=== PATIENT | male | born 1960 | race Caucasian/White ===

== ENCOUNTER → 2018-01-21 | Outpatient (CLI) | payer MEDICARE, MEDICAID ==
[2014-04-17 09:25] VITALS: BP 135/82
[~2018-01-21] MED LIST: ASPI-482 PO; LISI10TA2 PO; SIMV40TA3 PO
--- NOTE | 2018-01-21 16:35 | RAD ---
CT of the chest without contrast, 01/21/2018: HISTORY: Former smoker, clubbing Noncontrast scans were obtained as requested. The lungs are markedly abnormal. There are extensive reticular and tree-in-bud opacities in both lungs most prominent in the periphery of the lower lobes. There is mild associated bronchiectasis posteriorly in both lower lobes. There are abnormal air-containing structures in both lungs with dominant involvement of the upper lobes. Some of some of these demonstrate thin howard. The appearance suggests a combination of emphysema and honeycombing. Several small scattered groundglass type opacities are seen. No dense consolidation or definite mass is seen. There is no evidence of pleural fluid. There is moderate calcific plaquing of the thoracic aorta. Moderate coronary artery calcifications are present. The heart is not enlarged. There is mild mediastinal adenopathy including AP window and right paratracheal nodes measuring approximately 1.3 cm in short axis dimension. Mild scattered degenerative changes are present in the spine. IMPRESSION: 1. Extensive chronic lung disease demonstrating a combination of emphysema, interstitial lung disease with honeycombing and bronchiectasis. 2. Mild mediastinal adenopathy. 3. Moderate coronary artery calcifications. PQRS Compliance Statement: One or more of the following individualized dose reduction techniques were utilized for this examination: 1. Automated exposure control 2. Adjustment of the mA and/or kV according to patient size 3. Use of iterative reconstruction technique Electronically signed by: Reji Coffman MD (01/21/2018 4:31 PM) [facility]
== END | disposition home or self-care (01) ==
LOC: CT 08:09
PROVIDERS: ATTEND Internal Medicine Pulmonary Disease
DX: J43.9 Emphysema, unspecified (principal); J84.9 Interstitial pulmonary disease, unspecified; J47.9 Bronchiectasis, uncomplicated; R59.0 Localized enlarged lymph nodes; I25.10 Atherosclerotic heart disease of native coronary artery without angina pectoris; R68.3 Clubbing of fingers; Z87.891 Personal history of nicotine dependence
CPT/HCPCS: 71250

== ENCOUNTER → 2018-01-23 | Outpatient (CLI) | payer MEDICARE, MEDICAID ==
[2014-04-17 09:25] VITALS: BP 135/82
[2018-01-23] MEDS: REGADENOSON 0.4 MG/5 ML DISP.SYRIN. IV ONE (09:30)
--- NOTE | 2018-01-23 11:33 | CARD ---
MR#: [id number] Date of Study: 01/23/2018 Ordering Physician: CHRISTOPHE ALBERTO, Referring Physician: CHRISTOPHE ALBERTO, Tech: Laura Garcia [facility] APPROVED REPORT EXAM: Two-dimensional and M-mode echocardiogram with Doppler and color Doppler. Other Information Quality : Good INDICATION Dyspnea History of CVA 2D DIMENSIONS RVDd2.9 (2.9-3.5cm)Left Atrium(2D)2.8 (1.6-4.0cm) IVSd0.9 (0.7-1.1cm)Aortic Root(2D)2.6 (2.0-3.7cm) LVDd3.0 (3.9-5.9cm)LVOT Diameter2.0 (1.8-2.4cm) PWd0.9 (0.7-1.1cm)LVDs2.3 (2.5-4.0cm) FS (%) 22.0 %SV16.1 ml Aortic Valve AoV Peak Brian.143.6cm/sAoV VTI22.8cm AO Peak GR.8.2mmHgLVOT Peak Brian.95.1cm/s LVOT VTI 17.18cmAO Mean GR.4mmHg PRATIMA (VMAX)2.19ye7QKU (VTI)2.47cm2 Mitral Valve MV E Iagtopgt17.0cm/sMV DECEL QPKO588qu MV A Bftzatrq721.4cm/sMV OKG66pt E/A Ratio0.5MVA (PHT)3.74cm2 TDI E/Lateral E'3.3E/Medial E'8.1 Pulmonary Vein S1 Edoxeaec90.9cm/sD2 Qctleeat07.7cm/s LEFT VENTRICLE The left ventricle is normal size. There is normal left ventricular wall thickness. The left ventricu lar systolic function is normal and the ejection fraction is within normal range. The Ejection Fracti on is 55-60%. There is normal LV segmental wall motion. Transmitral Doppler flow pattern is Grade I-a bnormal relaxation pattern. RIGHT VENTRICLE The right ventricle is normal size. The right ventricular systolic function is normal. ATRIA The left atrium size is normal. The right atrium size is normal. The interatrial septum is intact wit h no evidence for an atrial septal defect or patent foramen ovale as noted on 2-D or Doppler imaging. AORTIC VALVE The aortic valve is calcified but opens well. Doppler and Color Flow revealed no significant aortic r egurgitation. There is no significant aortic valvular stenosis. MITRAL VALVE The mitral valve is calcified but opens well. There is no evidence of mitral valve prolapse. There is no mitral valve stenosis. Doppler and Color Flow revealed no mitral valve regurgitation noted. TRICUSPID VALVE The tricuspid valve is normal in structure and function. Doppler and Color Flow revealed trace tricus pid regurgitation. There is no tricuspid valve stenosis. PULMONIC VALVE The pulmonic valve is not well visualized. Doppler and Color Flow revealed no pulmonic valvular regur gitation. There is no pulmonic valvular stenosis. GREAT VESSELS The aortic root is normal in size. The ascending aorta is normal in size. The IVC is normal in size a nd collapses >50% with inspiration. PERICARDIAL EFFUSION There is no evidence of significant pericardial effusion. Critical Notification Critical Value: No <Conclusion> The left ventricle is normal size. The left ventricular systolic function is normal and the ejection fraction is within normal range. The Ejection Fraction is 55-60%. There is no significant aortic valvular stenosis. Doppler and Color Flow revealed no significant aortic regurgitation. Doppler and Color Flow revealed no mitral valve regurgitation noted. Doppler and Color Flow revealed trace tricuspid regurgitation. Signed by : Lalo Turner MD Electronically Approved : 01/23/2018 11:32:46
--- NOTE | 2018-01-23 14:47 | RAD ---
MR#: [id number] Date of Study: 01/23/2018 Ordering Physician: CHRISTOPHE ALBERTO, Referring Physician: BRETT HURTADO Tech: RT Urbano (R) (N) APPROVED REPORT Test Type: Pharmacological Stress Nurse/Tech: Casandar Polanco R.N. Test Indications: Dyspnea Cardiac History: Family history, Hypertension, former smoker Medications: See Electronic Medical Record Medical History: See Electronic Medical Record Resting ECG: NSR Resting Heart Rate: 80 bpm Resting Blood Pressure: 152/90mmHg Pretest Chest Pain: No chest pain Nurse/Tech Notes S1S2, coarse breath sounds. o2 at 2 L. NC Consent: The procedure was explained to the patient in lay terms. Informed consent was witnessed. Dipesh eout was entered into OFERTALDIA. History and Stress Test performed by Lane StoutN. Pharm. Details Pharmacologic stress testing was performed using 0.4mg per 5ml of regadenoson given intravenously ove r 7-10 seconds. Stress Symptoms Dyspnea POST EXERCISE Reason for Termination: Infusion complete Target HR: 138 Max HR: 113 bpm Max Blood Pressure: 133/72mmHg Blood Pressure response to exercise: Normal blood pressure response during stress. Chest Pain: No. Arrhythmia: No. ST Change: No. INTERPRETATION Stress EKG Conclusion: Baseline EKG showed sinus rhythm. No ischemic changes at peak stress. No arr hythmias. Imaging Protocol IMAGE PROTOCOL: Rest Tc-99m/stress Tc-99m 1 day Rest: Stress: Viability: Radiopharm.Tc99m RxxemhogqAb88x Sestamibi Dose11.5mCi 32.3mCi Duration 13min. 13min. Img Date 01/23/2018 01/23/2018 Inj-Img Elvx86evo. 60min. Rest Admin Site:IV - Left AntecubitalAdministrator:RT Urbano (R)(N) Stress Admin Site: IV - Left AntecubitalAdministrator: ROSY Banegas, ARRT (R)(N) STRESS DATA End Diast. Vol.61.0mlLVEDV index BSA36.0ml End Syst. Vol.16.0mlLVESV index BSA9.0ml Myocardial Osio166.0gEject. Vrnavmxb63.0% Stress Scores Regional WT1.00Summed WT21.00 Regional WM0.00Summed WM3.00 Study quality was good. Left Ventricular size was Normal at Rest and Stress. Lung uptake was . Left Ventricular ejection fraction is 74%. The rest and stress images show normal perfusion, normal contraction and thickening. LV Perf. Quant 17 Seg. SSS0.00 17 Seg. SRS0.00 17 Seg. SDS0.00 Stress Defect Extent (% LAD)0.00Rest Defect Extent (% LAD)0.00Rev. Defect Extent (% LAD)0.00 Stress Defect Extent (% LCX) 0.00Rest Defect Extent (% LCX)0.00Rev. Defect Extent (% LCX)0.00 Stress Defect Extent (% RCA)0.00Rest Defect Extent (% RCA)0.00Rev. Defect Extent (% RCA)0.00 Stress Defect Extent (% JAMIE)0.00Rest Defect Extent (% JAMIE)0.00Rev. Defect Extent (% JAMIE)0.00 Conclusion 1. Regadenoson cardioisotope stress test did not show any evidence of ischemia or infarct. 2. Normal left ventricular systolic function with ejection fraction calculated at 74%. 3. Low risk for cardiac events. Signed by : Tres Carlson, Electronically Approved : 01/23/2018 14:46:14
== END | disposition home or self-care (01) ==
LOC: NM 08:37
PROVIDERS: ATTEND Internal Medicine Cardiovascular Disease
DX: R06.00 Dyspnea, unspecified (principal); I10 Essential (primary) hypertension; Z82.49 Family history of ischemic heart disease and other diseases of the circulatory system; Z87.891 Personal history of nicotine dependence; Z86.73 Personal history of transient ischemic attack (TIA), and cerebral infarction without residual deficits
CPT/HCPCS: 78452; 93017; 93306; 96374; 96375; 96376; A9500; J2785

== ENCOUNTER → 2018-01-28 | Outpatient (CLI) | payer MEDICARE, MEDICAID ==
[2014-04-17 09:25] VITALS: BP 135/82
[2018-01-28 11:46] LABS: BASO # 0.1 x10^3/uL (0.0-0.2); BASO % 1 % (0-3); EOS # 0.1 x10^3/uL (0.0-0.7); EOS % 1 % (0-3); HEMATOCRIT 50.9 % (39.0-53.0); HEMOGLOBIN 17.1 g/dL (13.0-17.5); LYMPH # 1.6 x10^3/uL (1.0-4.8); LYMPH % 18 % (24-48); MEAN CORPUSCULAR HEMOGLOBIN 26 pg (25-35); MEAN CORPUSCULAR HGB CONC 34 g/dL (31-37); MEAN CORPUSCULAR VOLUME 79 fL (79-100); MONO # 0.6 x10^3/uL (0.0-1.1); MONO % 7 % (0-9); NEUT # 6.5 x10^3uL (1.8-7.7); NEUT % 73 % (31-73); PLATELET COUNT 268 x10^3/uL (140-400); RED BLOOD COUNT 6.49 x10^6/uL (4.30-5.70); RED CELL DISTRIBUTION WIDTH 16.5 % (11.5-14.5)
[2018-01-29 18:14] LABS: ANA INTERP Negative (.)
[2018-01-30 00:16] LABS: ANGIOTENSIN CONVERTING ENZYME < 15 U/L (14-82)
== END | disposition home or self-care (01) ==
LOC: LAB 10:57
PROVIDERS: ATTEND Internal Medicine Pulmonary Disease
DX: J84.9 Interstitial pulmonary disease, unspecified (principal)
CPT/HCPCS: 36415; 83880; 85025; 85651; 86038; 86431

== ENCOUNTER 2019-01-02 02:16 | Inpatient (IN) | payer MEDICARE, MEDICAID ==
[2019-01-02] VITALS (16 sets, daily range): BP systolic 106–204; BP diastolic 60–94
[~2019-01-02] VITALS: Ht 157.5 cm; Wt 63.2 kg
[~2019-01-02 02:16] MED LIST changes: +SIMV40TA18 PO; -SIMV40TA3 PO
[2019-01-02 02:40] LABS: BASO # 0.1 x10^3/uL (0.0-0.2); BASO % 1 % (0-3); EOS # 0.1 x10^3/uL (0.0-0.7); EOS % 1 % (0-3); HEMATOCRIT 45.2 % (39.0-53.0); HEMOGLOBIN 14.9 g/dL (13.0-17.5); LYMPH # 1.6 x10^3/uL (1.0-4.8); LYMPH % 14 % (24-48); MEAN CORPUSCULAR HEMOGLOBIN 26 pg (25-35); MEAN CORPUSCULAR HGB CONC 33 g/dL (31-37); MEAN CORPUSCULAR VOLUME 79 fL (79-100); MONO # 0.7 x10^3/uL (0.0-1.1); MONO % 6 % (0-9); NEUT # 8.7 x10^3/uL (1.8-7.7); NEUT % 78 % (31-73); PLATELET COUNT 240 x10^3/uL (140-400); RED BLOOD COUNT 5.73 x10^6/uL (4.30-5.70); RED CELL DISTRIBUTION WIDTH 17.9 % (11.5-14.5); WHITE BLOOD COUNT 11.3 x10^3/uL (4.0-11.0)
[2019-01-02] MEDS ORDERED: ASPIRIN CHEWABLE 81 MG TABLET. PO ONE ×2 (02:45→15:15)
[2019-01-02 02:49] LABS: CALCIUM 9.2 mg/dL (8.5-10.1); CREATININE 1.4 mg/dL (0.7-1.3); GFR 52.1; POTASSIUM 3.5 mmol/L (3.5-5.1); PROTHROMBIN TIME PATIENT 13.8 SEC (11.7-14.0)
[2019-01-02 02:55] LABS: ALBUMIN 3.7 g/dL (3.4-5.0); ALBUMIN/GLOBULIN RATIO 0.7 (1.0-1.7); TOTAL BILIRUBIN 0.7 mg/dL (0.2-1.0); TOTAL PROTEIN 9.3 g/dL (6.4-8.2)
--- NOTE | 2019-01-02 02:55 | RAD ---
PORTABLE CHEST 1V Clinical History: Pain Technique: AP view of the chest was obtained at 01/02/2019 2:29 AM. Comparison: February 14, 2018. Findings: There is reticular opacities throughout the lungs. The pulmonary vessels are difficult to evaluate. The heart is normal size. There is old rib fractures on the right. Impression: Chronic pulmonary fibrosis. Stable appearance of the chest. Electronically signed by: Lennox Flores III, MD (01/02/2019 2:52 AM) [facility]
[2019-01-02] MEDS ORDERED: HEPARIN 25,000UTS/500ML PREMIX 500 ML IV PRN (04:00)
[2019-01-02] MEDS: HEPARIN for IV BOLUS 10,000 UNIT/10 ML VIAL. IV PRN ×2 (04:14→12:34)
--- NOTE | 2019-01-02 04:33 | PHYS DOC ---
Past Medical History Past Medical History: COPD, CVA Past Surgical History: No Surgical History Alcohol Use: None Drug Use: None Adult General Chief Complaint Chief Complaint: CHEST PAIN HPI HPI Patient is a 58 year old who presents to the ED by EMS with a chief complaint of chest pain which started around 11 PM last night. 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 Patient's brother gives a history. Patient is on blood thinner which he does not know the name of. Patient states that he does not have a history of cardiac disease. No recent cardiac evaluations. Patient was given aspirin 324 mg by EMS. Review of Systems Review of Systems Constitutional: Denies fever or chills [] HENT: Denies nasal congestion or sore throat [] Respiratory: Denies cough or shortness of breath [] Cardiovascular: Complains of chest pain[] GI: Denies abdominal pain, nausea, vomiting, bloody stools or diarrhea [] : Denies dysuria or hematuria [] Musculoskeletal: Denies back pain or joint pain [] Neurologic: Denies headache, focal weakness or sensory changes [] All other systems were reviewed and found to be within normal limits, except as documented in this note. Current Medications Current Medications Current Medications Medications (Trade) Dose Ordered Sig/Joaquin Start Time Stop Time Status Last Admin Dose Admin Aspirin (Children'S Aspirin) 324 mg 1X ONCE 01/02/19 02:45 01/02/19 02:46 DC Heparin Sodium (Porcine) (Heparin Sodium) 1,850 unit PRN Q6HRS PRN 01/02/19 04:00 01/02/19 04:14 1,850 UNIT Heparin Sodium/ Dextrose 500 ml @ 0 mls/hr CONT PRN 01/02/19 04:00 01/02/19 04:19 17.5 MLS/HR Allergies Allergies Allergies Coded Allergies Type Severity Reaction Last Updated Verified No Known Drug Allergies 04/17/14 No Physical Exam Physical Exam Constitutional: Well developed, well nourished, no acute distress, non-toxic appearance. [] HENT: Normocephalic, atraumatic [] Eyes: PERRLA, EOMI, conjunctiva normal, no discharge. [] Neck: Normal range of motion, no tenderness, supple [] Cardiovascular:Heart rate regular rhythm, no murmur [] Lungs & Thorax: Bilateral breath sounds clear to auscultation [] Abdomen: Bowel sounds normal, soft, no tenderness. [] Extremities: No tenderness [] Neurologic: Alert and oriented X 3 [] Current Patient Data Vital Signs Vital Signs Date Time Temp Pulse Resp B/P (MAP) Pulse Ox O2 Delivery O2 Flow Rate FiO2 01/02/19 02:17 97.8 122 33 150/85 (106) 95 Nasal Cannula 6.0 97.8 Lab Values Laboratory Tests Test 01/02/19 01:50 White Blood Count 11.3 x10^3/uL (4.0-11.0) H Red Blood Count 5.73 x10^6/uL (4.30-5.70) H Hemoglobin 14.9 g/dL (13.0-17.5) Hematocrit 45.2 % (39.0-53.0) Mean Corpuscular Volume 79 fL (79-100) Mean Corpuscular Hemoglobin 26 pg (25-35) Mean Corpuscular Hemoglobin Concent 33 g/dL (31-37) Red Cell Distribution Width 17.9 % (11.5-14.5) H Platelet Count 240 x10^3/uL (140-400) Neutrophils (%) (Auto) 78 % (31-73) H Lymphocytes (%) (Auto) 14 % (24-48) L Monocytes (%) (Auto) 6 % (0-9) Eosinophils (%) (Auto) 1 % (0-3) Basophils (%) (Auto) 1 % (0-3) Neutrophils # (Auto) 8.7 x10^3/uL (1.8-7.7) H Lymphocytes # (Auto) 1.6 x10^3/uL (1.0-4.8) Monocytes # (Auto) 0.7 x10^3/uL (0.0-1.1) Eosinophils # (Auto) 0.1 x10^3/uL (0.0-0.7) Basophils # (Auto) 0.1 x10^3/uL (0.0-0.2) Prothrombin Time 13.8 SEC (11.7-14.0) Prothrombin Time INR 1.1 (0.8-1.1) Sodium Level 142 mmol/L (136-145) Potassium Level 3.5 mmol/L (3.5-5.1) Chloride Level 104 mmol/L (98-107) Carbon Dioxide Level 26 mmol/L (21-32) Anion Gap 12 (6-14) Blood Urea Nitrogen 31 mg/dL (8-26) H Creatinine 1.4 mg/dL (0.7-1.3) H Estimated GFR (Cockcroft-Gault) 52.1 BUN/Creatinine Ratio 22 (6-20) H Glucose Level 120 mg/dL (70-99) H Calcium Level 9.2 mg/dL (8.5-10.1) Total Bilirubin 0.7 mg/dL (0.2-1.0) Aspartate Amino Transferase (AST) 27 U/L (15-37) Alanine Aminotransferase (ALT) 16 U/L (16-63) Alkaline Phosphatase 70 U/L (46-116) Troponin I Quantitative 2.509 ng/mL (0.000-0.055) EN-Uek-D-Type Natriuretic Peptide 6986 pg/mL (0-124) H Total Protein 9.3 g/dL (6.4-8.2) H Albumin 3.7 g/dL (3.4-5.0) Albumin/Globulin Ratio 0.7 (1.0-1.7) L Lipase 117 U/L (73-393) Laboratory Tests 01/02/19 01:50 Laboratory Tests 01/02/19 01:50 EKG EKG EKG interpretation: HR: 1:15 Sinus tachycardia Regular intervals normal axis T-wave inversions in V2 V3 V4 Radiology/Procedures Radiology/Procedures Ordered single view chest x-ray Impressions: Chest x-ray shows no acute disease. Course & Med Decision Making Course & Med Decision Making Pertinent Labs and Imaging studies reviewed. (See chart for details) EKG shows no ST elevation but does have inverted T waves in V2 V3 and V4. Troponin elevated at 2.509. Patient is started on the heparin protocol MDD. Course patient presentation and test results and plan of care with Dr. Romero who is the casting machine set up operator front office administrator Patient states that currently he has no chest pain. Discussed results and plan of care patient and family. Patient will be admitted for further evaluation and treatment. Discussed case with Dr. Alamo who accepts admission. Dragon Disclaimer Dragon Disclaimer This electronic medical record was generated, in whole or in part, using a voice recognition dictation system. Departure Departure Impression: Primary Impression: NSTEMI (non-ST elevated myocardial infarction) Referrals: MARIA DEL CARMEN GRIMES MD (PCP) RAMON APPLE DO Jan 02, 2019 04:33
[2019-01-02] MEDS ORDERED: ONDANSETRON PF 4 MG/2 ML VIAL. IV PRN (04:45)
--- NOTE | 2019-01-02 08:03 | EKG ---
[facility] [address] [place] [address] Test Date: 2019-01-02 Test Time: 02:21:13 Pat Name: LUCINDA AMANDA Department: Room: Gender: M [employer]: : 1960 Requested By: RAMON APPLE Order Number: [id number] Reading MD: Measurements Intervals [place] Rate: 119 P: 84 MA: 124 QRS: 3 QRSD: 100 T: -29 QT: 336 QTc: 480 Interpretive Statements SINUS TACHYCARDIA S1,S2,S3 PATTERN CONSIDER RIGHT VENTRICULAR HYPERTROPHY QRS(T) CONTOUR ABNORMALITY CONSISTENT WITH INFERIOR INFARCT AGE UNDETERMINED ST & T ABNORMALITY, CONSIDER ANTEROSEPTAL ISCHEMIA OR LEFT VENTRICULAR STRAIN T ABNORMALITY IN ANTERIOR LEADS ABNORMAL ECG No previous ECG available for comparison
[2019-01-02] MEDS ORDERED: NITROGLYCERIN OINT 1 GM PACKET. TP ONE (08:30)
--- NOTE | 2019-01-02 08:34 | PDOC ---
Provider Note Provider Note [id number] SIS TRUONG MD Jan 02, 2019 08:34
--- NOTE | 2019-01-02 08:43 | HP ---
ADMIT DATE: 01/02/2019 CHIEF COMPLAINT: Chest pain. HISTORY OF PRESENT ILLNESS: A 58-year-old white male who has had a previous left-sided stroke with aphasia and right-sided hemiparesis as well as known oxygen-dependent COPD and peripheral arterial disease. He came in with chest pain per relatives with him at the time of the ER and of an unknown duration and severity and type. ER evaluation showed elevation of troponin and some EKG changes which are not available for review here and he has been on heparin since that time and states he is still having some chest pain and he points to his left and mid chest. There is no dyspnea at rest. PAST MEDICAL HISTORY: Previous CVA 7 years ago and he had a left carotid endarterectomy as a result. MEDICATIONS: He takes aspirin, simvastatin and lisinopril for hypertension. ALLERGIES: No allergies are known. He has been on oxygen for some time, has no history of coronary artery disease to my knowledge. SOCIAL HISTORY: Quit smoking some years ago. He is and lives with his brother, disabled, nondrinker. FAMILY HISTORY: Unremarkable. REVIEW OF SYSTEMS: No other known complaints except claudication when he walks. OBJECTIVE: ENT: Plethoric facies, otherwise generally unremarkable, has a cyst in the middle of his forehead. NECK: Revealed no carotid bruits, nodes, JVD, or thyroid enlargement. LUNGS: Decreased breath sounds without tachypnea. CARDIOVASCULAR: Regular rate, rate 100. No murmur or S3 is heard. Chest wall is nontender. ABDOMEN: Soft, benign and nontender. EXTREMITIES: Reduced pedal pulses. He has 3+ clubbing of the fingernails and toenails. No edema. No joint or skin lesions are seen. NEUROLOGIC: He is notably aphasic, has right-sided stiffness, weakness, and some hyperreflexia. GENITOURINARY AND RECTAL: Deferred. ASSESSMENT: Non-ST elevated myocardial infarction per elevated troponin and EKG changes. Risk factors include a prior tobacco use and known oxygen-dependent chronic obstructive pulmonary disease and peripheral arterial disease. PLAN: We will add nitroglycerin ointment for symptomatic relief for now. Remains on heparin and n.p.o., advance for probable cardiac catheterization. SIS TRUONG MD DR: SHERI/maurizio JOB#: [id number] / [id number]
[2019-01-02] MEDS ORDERED: IV NORMAL SALINE 1000ML BAG 1,000 ML IV ONE (09:45)
--- NOTE | 2019-01-02 09:49 | PDOC2 ---
SUPRIYA MON NYLON MACHINE OPERATOR 01/02/19 0949: CARDIAC CONSULT DATE OF CONSULT Date of Consult DATE: 01/02/19 TIME: 09:32 REASON FOR CONSULT Reason for Consult: NSTEMI REFERRING PHYSICIAN Referring Physician: Melita SOURCE Source: Chart review, Patient HISTORY OF PRESENT ILLNESS HISTORY OF PRESENT ILLNESS This is a pleasant 58 yo male admitted for complains of chest pain. Reports that this started happening 2 days ago. Chest presure associated with SOA. No n/v. He has been feeling tired. He uses walker with his right side hemiparesis. No prior falls or injury. No recent fever or chills or any infection. He has been compliant with his statin BP med and ASA. PAST MEDICAL HISTORY Cardiovascular: HTN, Hyperlipidemia, Other (PAD, carotid artery disease) Pulmonary: COPD, Other (pulmonary fibrosis) CENTRAL NERVOUS SYSTEM: CVA (with right side hemiparesis), Other (aphasia) Musculoskeletal: Osteoarthritis Renal/: Benign prostatic enlarg. PAST SURGICAL HISTORY Past Surgical History carotid endarterectomy FAMILY HISTORY Family History: Heart Disease SOCIAL HISTORY Smoke: Quit ALCOHOL: none Drugs: None Lives: Alone CURRENT MEDICATIONS CURRENT MEDICATIONS Current Medications Medications (Trade) Dose Ordered Sig/Joaquin Route PRN Reason Start Time Stop Time Status Last Admin Dose Admin Heparin Sodium/ Dextrose 500 ml @ 0 mls/hr CONT PRN IV PER PROTOCOL 01/02/19 04:00 01/02/19 04:19 Heparin Sodium (Porcine) (Heparin Sodium) 1,850 unit PRN Q6HRS PRN IV FOR UFH LEVEL LESS THAN 0.2 01/02/19 04:00 01/02/19 04:14 ALLERGIES ALLERGIES: Coded Allergies: No Known Drug Allergies (Unverified , 04/17/14) ROS Review of System 14 point ROS evaluated with pertinent positives noted per HPI PHYSICAL EXAM General: Alert, Oriented X3, Cooperative, No acute distress HEENT: Atraumatic, Mucous membr. moist/pink Lungs: Clear to auscultation, Normal air movement Heart: Regular rate (SR), Normal S1, Normal S2, Other (2/6 systolic murmur to LLS border) Abdomen: Soft, No tenderness Extremities: No cyanosis, No edema Skin: No breakdown, No significant lesion Neuro: Normal speech, Sensation intact Psych/Mental Status: Mental status NL, Mood NL MUSCULOSKELETAL: Osteoarthritic changes both hands VITALS/I&O VITALS/I&O: Vital Signs Date Time Temp Pulse Resp B/P (MAP) Pulse Ox O2 Delivery O2 Flow Rate FiO2 01/02/19 06:00 Nasal Cannula 5.0 01/02/19 05:45 85 28 131/79 (96) 98 01/02/19 02:17 97.8 97.8 I & O 01/01/19 01/01/19 01/02/19 15:00 23:00 07:00 Intake Total 26.5 ml Balance 26.5 ml LABS Lab: Laboratory Tests Test 01/02/19 01:50 01/02/19 05:15 White Blood Count 11.3 x10^3/uL (4.0-11.0) H Red Blood Count 5.73 x10^6/uL (4.30-5.70) H Hemoglobin 14.9 g/dL (13.0-17.5) Hematocrit 45.2 % (39.0-53.0) Mean Corpuscular Volume 79 fL (79-100) Mean Corpuscular Hemoglobin 26 pg (25-35) Mean Corpuscular Hemoglobin Concent 33 g/dL (31-37) Red Cell Distribution Width 17.9 % (11.5-14.5) H Platelet Count 240 x10^3/uL (140-400) Neutrophils (%) (Auto) 78 % (31-73) H Lymphocytes (%) (Auto) 14 % (24-48) L Monocytes (%) (Auto) 6 % (0-9) Eosinophils (%) (Auto) 1 % (0-3) Basophils (%) (Auto) 1 % (0-3) Neutrophils # (Auto) 8.7 x10^3/uL (1.8-7.7) H Lymphocytes # (Auto) 1.6 x10^3/uL (1.0-4.8) Monocytes # (Auto) 0.7 x10^3/uL (0.0-1.1) Eosinophils # (Auto) 0.1 x10^3/uL (0.0-0.7) Basophils # (Auto) 0.1 x10^3/uL (0.0-0.2) Prothrombin Time 13.8 SEC (11.7-14.0) Prothrombin Time INR 1.1 (0.8-1.1) Sodium Level 142 mmol/L (136-145) Potassium Level 3.5 mmol/L (3.5-5.1) Chloride Level 104 mmol/L (98-107) Carbon Dioxide Level 26 mmol/L (21-32) Anion Gap 12 (6-14) Blood Urea Nitrogen 31 mg/dL (8-26) H Creatinine 1.4 mg/dL (0.7-1.3) H Estimated GFR (Cockcroft-Gault) 52.1 BUN/Creatinine Ratio 22 (6-20) H Glucose Level 120 mg/dL (70-99) H Calcium Level 9.2 mg/dL (8.5-10.1) Total Bilirubin 0.7 mg/dL (0.2-1.0) Aspartate Amino Transferase (AST) 27 U/L (15-37) Alanine Aminotransferase (ALT) 16 U/L (16-63) Alkaline Phosphatase 70 U/L (46-116) Troponin I Quantitative 2.509 ng/mL (0.000-0.055) 2.305 ng/mL (0.000-0.055) RT-Tay-R-Type Natriuretic Peptide 6986 pg/mL (0-124) H Total Protein 9.3 g/dL (6.4-8.2) H Albumin 3.7 g/dL (3.4-5.0) Albumin/Globulin Ratio 0.7 (1.0-1.7) L Lipase 117 U/L (73-393) Laboratory Tests 01/02/19 01:50 Laboratory Tests 01/02/19 01:50 ECHOCARDIOGRAM ECHOCARDIOGRAM <Conclusion> The left ventricle is normal size. The left ventricular systolic function is normal and the ejection fraction is within normal range. The Ejection Fraction is 55-60%. There is no significant aortic valvular stenosis. Doppler and Color Flow revealed no significant aortic regurgitation. Doppler and Color Flow revealed no mitral valve regurgitation noted. Doppler and Color Flow revealed trace tricuspid regurgitation. DATE: 01/23/18 1132 ASSESSMENT/PLAN ASSESSMENT/PLAN 1. NSTEMI; ACS 2. HTN: controlled 3. HLP 4. HUY: prerenal with dehydration 5. Hx of CVA with right side hemiparesis 6. COPD Recommendations 1. LHC today, risks and benefits discussed and agreeable to proceed 2. IVF. 3. ASA. heparin 4. Will reeval needs post LHC 5. TTE, lipids CHRISTOPHE ALBERTO MD 01/02/198: CARDIAC CONSULT ASSESSMENT/PLAN ASSESSMENT/PLAN Pt. seen and examined. Agree with above MOLD PULLER note. 58 y.o critically ill male with NSTEMI, likely type 2 due to COPD issues. He has insignificant coronary disease that does not explain his hypoxia. Suspect, hypoxia leading to chest pain from small vessel disease. Continue medical therapy for now. Supportive care. SUPRIYA MON APRN Jan 02, 2019 09:49 CHRISTOPHE ALBERTO MD Jan 02, 2019 21:48
[2019-01-02] MEDS ORDERED: LABETALOL 20 MG/4 ML DISP.SYRIN. IVP PRN (10:00)
[2019-01-02] MEDS: LISINOPRIL 10 MG TABLET PO SCH (10:18)
[2019-01-02 10:30] LABS: CHOLESTEROL/HDL RATIO 6.2
--- NOTE | 2019-01-02 11:30 | NUR ---
SS following for discharge planning. SS reviewed pt chart. Pt is from home with brother and is currently requiring oxygen. SS will continue to follow for discharge planning.
--- NOTE | 2019-01-02 11:40 | CARD ---
MR#: [id number] Date of Study: 01/02/2019 Ordering Physician: SUPRIYA MON, Referring Physician: SUPRIYA MON Tech: Judith Griffin NICOLE APPROVED REPORT EXAM: Two-dimensional and M-mode echocardiogram with Doppler and color Doppler. Other Information Quality : AverageHR: 90bpm Rhythm : NSR INDICATION Non STEMI 2D DIMENSIONS RVDd3.6 (2.9-3.5cm)Left Atrium(2D)2.7 (1.6-4.0cm) IVSd1.0 (0.7-1.1cm)Aortic Root(2D)2.9 (2.0-3.7cm) LVDd3.9 (3.9-5.9cm)LVOT Diameter2.0 (1.8-2.4cm) PWd0.8 (0.7-1.1cm)LVDs2.9 (2.5-4.0cm) FS (%) 26.9 %SV35.2 ml LVEF(%)53.1 (>50%) M-Mode DIMENSIONS Left Atrium(MM)2.66 (2.5-4.0cm)Aortic Root3.08 (2.2-3.7cm) Aortic Valve AoV Peak Brian.143.7cm/sAoV VTI23.2cm AO Peak GR.8.3mmHgLVOT VTI 14.89cm AO Mean GR.4mmHgAVA (VTI)2.00cm2 Mitral Valve MV E Mgovkfpr58.7cm/sMV DECEL SKYP324ls MV A Iztejoug11.2cm/sE/A Ratio0.7 MV A Ahihmlnh112cm TDI Lateral E' P. V10.68cm/sMedial E' P. V7.02cm/s E/Lateral E'6.2E/Medial E'9.5 Tricuspid Valve TR P. Hhswnigj476yk/sRAP TACAWPZD0crZa TR Peak Gr.54xuLuHLJY26bfOs LEFT VENTRICLE The left ventricle is normal size. There is normal left ventricular wall thickness. Left ventricle sy stolic function is low normal. The Ejection Fraction is 50%. Septal motion consistent right ventricle pressure overload. There is also mild anterior wall hypokinesis. Transmitral Doppler flow pattern is Grade I-abnormal relaxation pattern. RIGHT VENTRICLE The right ventricle is moderately dilated. There is normal right ventricular wall thickness. RV Systo lic function is mildly reduced. ATRIA The left atrium size is normal. The right atrium is mildly dilated. The interatrial septum is intact with no evidence for an atrial septal defect or patent foramen ovale as noted on 2-D or Doppler imagi ng. AORTIC VALVE The aortic valve is mildly calcified. The aortic valve is trileaflet. Doppler and Color Flow revealed no significant aortic regurgitation. There is no significant aortic valvular stenosis. MITRAL VALVE Mitral annular calcification is mild. There is no evidence of mitral valve prolapse. There is no mitr al valve stenosis. Doppler and Color Flow revealed no mitral valve regurgitation noted. TRICUSPID VALVE The tricuspid valve is normal in structure and function. Doppler and Color Flow revealed mild tricusp id regurgitation.There is moderate pulmonary hypertension. The PA pressure was estimated at 54 mmHg. There is no tricuspid valve prolapse or vegetation. There is no tricuspid valve stenosis. PULMONIC VALVE The pulmonic valve is not well visualized. GREAT VESSELS The aortic root is normal in size. The ascending aorta is normal in size. The IVC was not visualized. PERICARDIAL EFFUSION There is no evidence of significant pericardial effusion. Critical Notification Critical Value: No <Conclusion> Septal motion consistent right ventricle pressure overload. There is also mild anterior wall hypokine sis. Left ventricle systolic function is low normal. The Ejection Fraction is 50%. The right ventricle is moderately dilated. RV Systolic function is mildly reduced. Doppler and Color Flow revealed mild tricuspid regurgitation.There is moderate pulmonary hypertension . The PA pressure was estimated at 54 mmHg. Signed by : Edy Romero, Electronically Approved : 01/02/2019 11:40:27
[2019-01-02] MEDS ORDERED: LIDOCAINE 1% PF 2 ML VIAL. ONE (12:37)
[2019-01-02] MEDS ORDERED: MIDAZOLAM HCL/PF 2 MG/2 ML VIAL. ONE (13:02)
[2019-01-02] MEDS ORDERED: fentaNYL PF VIAL 100 MCG/2 ML VIAL ONE (13:02)
[2019-01-02] MEDS ORDERED: LIDOCAINE 1% Multi-Dose 20 ML VIAL. ONE ×2 (13:04→13:50)
--- NOTE | 2019-01-02 13:05 | NUR ---
pt left the floor for heart cath at approx 1250
[2019-01-02] MEDS ORDERED: IODIXANOL 320 MG/ML 100 ML VIAL. ONE (13:17)
[2019-01-02] MEDS ORDERED: VERAPAMIL 5 MG/2 ML VIAL. ONE (13:30)
[2019-01-02] MEDS ORDERED: NITROGLYCERIN 200 MCG/2 ML SYRINGE FOR CATH/VASC LAB. ONE (13:30)
[2019-01-02] MEDS ORDERED: HEPARIN for IV BOLUS 10,000 UNIT/10 ML VIAL. ONE (13:30)
[2019-01-02] MEDS ORDERED: fentaNYL PF VIAL 100 MCG/2 ML VIAL IV ONE (14:30)
[2019-01-02] MEDS ORDERED: LIDOCAINE 1% Multi-Dose 20 ML VIAL. INJ ONE (14:30)
[2019-01-02] MEDS ORDERED: MIDAZOLAM HCL/PF 2 MG/2 ML VIAL. IV ONE (14:30)
[2019-01-02] MEDS ORDERED: VERAPAMIL 5 MG/2 ML VIAL. IART ONE (14:30)
[2019-01-02] MEDS ORDERED: LIDOCAINE 1% PF 2 ML VIAL. INJ ONE (14:30)
[2019-01-02] MEDS ORDERED: IODIXANOL 320 MG/ML 100 ML VIAL. IART ONE (14:30)
[2019-01-02] MEDS ORDERED: NITROGLYCERIN 200 MCG/2 ML SYRINGE FOR CATH/VASC LAB. IART ONE (14:30)
[2019-01-02] MEDS ORDERED: HEPARIN for IV BOLUS 10,000 UNIT/10 ML VIAL. IART ONE (14:30)
[2019-01-02] MEDS ORDERED: CLOPIDOGREL BISULFATE 75 MG TABLET PO ONE (15:15)
--- NOTE | 2019-01-02 15:17 | CARD ---
MR#: [id number] Date of Study: 01/02/2019 Ordering Physician: SUPRIYA MON, Referring Physician: SUPRIYA MON, Tech: Lyudmila Simms APPROVED REPORT Technologist: Lyudmila Simms Nurse: Anna Rincon R.N. Procedure(s) performed: fl time: 9.3 mins dose: 55 gy/cm2 contrast: 119 ml visipaque moderate sedation: 99 MINUTES LHC, Coronary angiography, Bilateral femoral angiography HISTORY The patient is a 58 year-old male with a history of : hypertension, dyslipidemia. INDICATION The indication(s) include : non-STEMI . CSHA Clinical Frailty Scale CS Clinical Frailty Scale: Severely Frail Heart Failure Heart Failure: Yes If Yes, Newly Diagnosed: No If Yes, HF Type: Diastolic If Yes, NYHA Class: Class III PROCEDURE NARRATIVE INFORMED CONSENT: After explaining the risks and benefits of the procedure and alternatives, informed consent was obtained. The patient was brought electively to the cardiac catheterization lab. A timeout was performed confi rming the patient's name, date of , procedure, and site of procedure. All necessary personnel w ere wearing the appropriate protective equipment and radiation monitor devices. (See nursing notes for medications administered). ACCESS: Due to prior stroke with right arm flexion, attempts were made at groin access. Under u/s guidance a 5Fr sheath was placed in the RCFA but advancement of a wire was unsuccessful due to EIA occlusion. Ortega bsequently, a 4Fr sheath was placed in the LCFA, this access was unable to pass the EIA on the left s jana due to occlusion. The left wrist was sterilely prepped and draped in the usual fashion. The left wrist was infiltrated with 1 mL of 2% lidocaine for subcutaneous anesthesia. A 6 [place] Terumo glide sheath was inserted into the left radial artery without difficulty. CORONARY ANGIOGRAPHY: Right and left coronary angiography was performed using a 5Fr JR4 and JL3.5 catheters. Left ventric ular end diastolic pressure was obtained with a JL 3.5 catheter and pullback was performed after left ventriculography. All catheter exchanges and advancements were performed over a guidewire. CLOSURE: At case completion the left radial sheath was removed and a Terumo radial band was applied with 13 ml of air. The groin sheaths were removed via manual compression. COMPLICATIONS: The patient tolerated the procedure well and there were no immediate complications. This a complex ca se due to severe PAD and difficult access. FINDINGS: HEMODYNAMICS: LVEDP 5 mm Hg No gradient on LV to aortic pullback. AO: 128/78 LEFT VENTRICULOGRAM: Deferred due to known CMP with EF of 45% on echo. CORONARY ANGIOGRAPHY: LM is a large caliber vessel with a distal 10% stenosis. LAD is a large caliber vessel with heavy adventitial calcification and a proximal 50% stenossi. LCx is a moderate caliber dominant vessel with mild diffuse irregularities of up to 40%. OM1 is a moderate caliber vessel with normal angiographic appearance. LPL1 is a moderate caliber vessel with mild luminal irregularities. RCA is a small caliber non-dominant vessel with an ostial 90% stenosis. FEMORAL ANGIOGRAPHY: Bilateral TERRITORY SALES MANAGER has diffuse disease of up to 50% Bilateral external iliac arteries are occluded. Conclusion 1. Normal left sided filling pressures. LVEDP 5 mm Hg 2. Three vessel coronary disease. 3. Severe PAD with bilateral aortoiliac occlusions. Recommendations Aggressive Medical Therapy Signed by : Edy Romero, Electronically Approved : 01/02/2019 15:16:32
--- NOTE | 2019-01-02 16:06 | NUR ---
PT RECEIVED FLU SHOT AT DR COHN OFFICE THIS YEAR.
--- NOTE | 2019-01-02 16:33 | NUR ---
SW requested by pt's brother to update address for DPOA paper work. Spoke with pt and he named his brother, Scotty Camargo as his DPOA for healthcare decision. Form notarized and copy placed on chart. Pt and brother given original and copies to take home. RN notified.
[2019-01-02] MEDS ORDERED: SIMVASTATIN 40 MG TABLET. PO SCH (21:00)
[2019-01-02] MEDS ORDERED: FURO20TA3 PO (22:59)
[2019-01-02] MEDS ORDERED: LISI-130 PO (22:59)
[2019-01-02] MEDS ORDERED: FAMO20TA5 PO (22:59)
[2019-01-02] MEDS ORDERED: MONT10TA49 PO (22:59)
[2019-01-03 03:00] VITALS: BP 116/73
[2019-01-03 04:33] LABS: HEMATOCRIT 41.7 % (39.0-53.0); HEMOGLOBIN 13.7 g/dL (13.0-17.5); RED BLOOD COUNT 5.22 x10^6/uL (4.30-5.70); RED CELL DISTRIBUTION WIDTH 17.8 % (11.5-14.5); WHITE BLOOD COUNT 9.7 x10^3/uL (4.0-11.0)
[2019-01-03 07:00] VITALS: BP 126/79
--- NOTE | 2019-01-03 08:34 | PDOC ---
Provider Note Provider Note cath showed 3 vessel disea, not operable, labs ok- on heparin and other new meds- cont same for now SIS TRUONG MD Jan 03, 2019 08:34
[2019-01-03 08:56] LABS: CALCIUM 8.4 mg/dL (8.5-10.1); CREATININE 1.1 mg/dL (0.7-1.3); GFR 68.8; POTASSIUM 3.8 mmol/L (3.5-5.1)
[2019-01-03] MEDS: CLOPIDOGREL BISULFATE 75 MG TABLET PO SCH (09:06)
[2019-01-03] MEDS: ASPIRIN ENTERIC COATED 81 MG TABLET.DR. PO SCH (09:07)
[2019-01-03] MEDS: LISINOPRIL 10 MG TABLET PO SCH (09:07)
[2019-01-03 10:57] VITALS: BP 114/64
[2019-01-03 15:00] VITALS: BP 153/79
--- NOTE | 2019-01-03 15:58 | PDOC ---
SUPRIYA MON IRS AGENT 01/03/19 1558: CARDIO Progress Notes Date and Time Date of Service 01/03/2019 Time of Evaluation 1520 Subjective Subjective: No Chest Pain, No shortness of breath, No Palpitations Vitals Vitals Vital Signs Date Time Temp Pulse Resp B/P (MAP) Pulse Ox O2 Delivery O2 Flow Rate FiO2 01/03/19 10:57 97.2 99 20 114/64 (81) 94 Venturi Mask 10.0 97.2 Weight Weight [ ] Input and Output Intake and Output Intake and Output 01/03/19 07:00 Intake Total 780 ml Balance 780 ml Intake Oral 400 ml Blood Product IV Normal Saline Flush 380 ml # Voids 4 Laboratory Labs Laboratory Tests Test 01/03/19 04:15 White Blood Count 9.7 x10^3/uL (4.0-11.0) Red Blood Count 5.22 x10^6/uL (4.30-5.70) Hemoglobin 13.7 g/dL (13.0-17.5) Hematocrit 41.7 % (39.0-53.0) Mean Corpuscular Volume 80 fL (79-100) Mean Corpuscular Hemoglobin 26 pg (25-35) Mean Corpuscular Hemoglobin Concent 33 g/dL (31-37) Red Cell Distribution Width 17.8 % (11.5-14.5) Platelet Count 223 x10^3/uL (140-400) Sodium Level 141 mmol/L (136-145) Potassium Level 3.8 mmol/L (3.5-5.1) Chloride Level 106 mmol/L (98-107) Carbon Dioxide Level 25 mmol/L (21-32) Anion Gap 10 (6-14) Blood Urea Nitrogen 23 mg/dL (8-26) Creatinine 1.1 mg/dL (0.7-1.3) Estimated GFR (Cockcroft-Gault) 68.8 Glucose Level 92 mg/dL (70-99) Calcium Level 8.4 mg/dL (8.5-10.1) Physical Exam HEENT: Neck Supple W Full Motion Chest: Symmetric LUNGS: Clear to Auscultation Heart: RRR (SR) Abdomen: Soft N/T Extremities: No Calf Tenderness Neurology: alert, oriented, follow commands Assessment Assessment 1. NSTEMI; LHC revealed 3VD with no intervention. Trop elevation likely due to tight distal RCA disease with associated renal insufficency 2. LE PAD: no open wounds/claudications. Will treat medically 3. Mild cardiomyopathy: EF 45% 4. HTN: controlled 5. HLP 4. HUY: resolved 5. Hx of CVA with right side hemiparesis 6. COPD Recommendations 1. ASA, plavix 2. Intensiffy. statin DC zocor and place4 on lipitor 3. Metoprolol and lisinopril 4. Cardiac rehab CHRISTOPHE ALBERTO MD 01/04/19 0758: CARDIO Progress Notes Plan Plan Late entry for 01/03/2019. Patient seen and examined. Discussed with brother at bedside Dyspnea related to COPD. He was previously on hospice. Supportive care for now. He is not able to tolerate cardiac rehabilitation due to his severe COPD and dyspnea. Continue medical therapy as tolerated. SUPRIYA MON APRN Jan 03, 2019 15:58 CHRISTOPHE ALBERTO MD Jan 04, 2019 07:58
[2019-01-03] MEDS: METOPROLOL TART IMMED RELEASE 25 MG TABLET. PO SCH ×2 (16:00→20:58)
--- NOTE | 2019-01-03 16:03 | NUR ---
pt started on metoprolol bid. first dose to close to second one. Non administered first dose per [facility] cardiology. First dose to be given at 2100
[2019-01-03 19:40] VITALS: BP 128/79
[2019-01-03] MEDS: ATORVASTATIN CALCIUM 40 MG TABLET. PO SCH (20:57)
[2019-01-03 23:26] VITALS: BP 121/77
[2019-01-04 03:40] VITALS: BP 124/71
[2019-01-04 07:00] VITALS: BP 113/63
[2019-01-04] MEDS: LISINOPRIL 10 MG TABLET PO SCH (08:17)
[2019-01-04] MEDS: METOPROLOL TART IMMED RELEASE 25 MG TABLET. PO SCH ×2 (08:17→21:24)
[2019-01-04] MEDS: CLOPIDOGREL BISULFATE 75 MG TABLET PO SCH (08:17)
[2019-01-04] MEDS: ASPIRIN ENTERIC COATED 81 MG TABLET.DR. PO SCH (08:18)
[2019-01-04 11:00] VITALS: BP 112/68
--- NOTE | 2019-01-04 13:36 | PDOC ---
GENERAL General: vss and afebrile. awake and alert and difficulty communicating secondary to aph isaiah. stable right hemiparesis, chest with diminished breath sounds but clear, requiring 15L/NC O2 with non rebreather mask at time of my exam, heart regular, abdomen benign, no edema. 3 vessel CAD on cath with medical therapy ongoing. unsure as to reason for O2 need currently and will repeat cxr with pulmonary eval if not resolving on its own. VITAL SIGNS/I&O Vital Signs/I&O: Vital Signs Date Time Temp Pulse Resp B/P (MAP) Pulse Ox O2 Delivery O2 Flow Rate FiO2 01/04/19 11:00 98.1 77 18 112/68 (83) 96 Venturi Mask 15.0 98.1 I & O 01/03/19 01/03/19 01/04/19 15:00 23:00 07:00 Intake Total 180 ml 50 ml Balance 180 ml 50 ml ALLERGIES Allergies: Allergies Coded Allergies Type Severity Reaction Last Updated Verified No Known Drug Allergies 04/17/14 No MEDS Medications: Current Medications Medications (Trade) Dose Ordered Sig/Joaquin Route PRN Reason Start Time Stop Time Status Last Admin Dose Admin Atorvastatin Calcium (Lipitor) 40 mg QHS PO 01/03/19 21:00 01/03/19 20:57 Metoprolol Tartrate (Lopressor) 12.5 mg BID PO 01/03/19 16:00 01/04/19 08:17 MARGE COLMENARES MD Jan 04, 2019 13:36
[2019-01-04 14:32] VITALS: BP 104/59
--- NOTE | 2019-01-04 15:56 | RAD ---
CHEST AP ONLY INDICATION: Hypoxia. COMPARISON STUDY: 01/02/2019. FINDINGS: Lungs: Low lung volume. Stable diffuse bilateral heterogeneous opacities. Stable vascular indistinctness. Pleura: No pleural effusion or pneumothorax. Heart and Mediastinum: Stable cardiomediastinal silhouette and great vessels. IMPRESSION: Stable diffuse bilateral heterogeneous opacities. Electronically signed by: Josue Fortune MD (01/04/2019 3:53 PM) [facility]
[2019-01-04 19:45] VITALS: BP 120/69
[2019-01-04] MEDS: ATORVASTATIN CALCIUM 40 MG TABLET. PO SCH (21:23)
[2019-01-04 23:46] VITALS: BP 111/64
[2019-01-05 03:15] VITALS: BP 108/55
[2019-01-05 05:14] LABS: HEMATOCRIT 43.3 % (39.0-53.0); HEMOGLOBIN 14.2 g/dL (13.0-17.5); RED BLOOD COUNT 5.4 x10^6/uL (4.30-5.70); RED CELL DISTRIBUTION WIDTH 17.6 % (11.5-14.5); WHITE BLOOD COUNT 9.7 x10^3/uL (4.0-11.0)
[2019-01-05 07:00] VITALS: BP 101/54
[2019-01-05] MEDS: LISINOPRIL 10 MG TABLET PO SCH (08:08)
[2019-01-05] MEDS: METOPROLOL TART IMMED RELEASE 25 MG TABLET. PO SCH ×2 (08:08→21:20)
[2019-01-05] MEDS: CLOPIDOGREL BISULFATE 75 MG TABLET PO SCH (08:08)
[2019-01-05] MEDS: ASPIRIN ENTERIC COATED 81 MG TABLET.DR. PO SCH (08:08)
[2019-01-05 11:22] VITALS: BP 130/56
--- NOTE | 2019-01-05 11:54 | PDOC ---
GENERAL General: vss and afebrile. awake and alert. aphasia same. O2 at 5L/NC this am and sats 87% currently. exam/cxr stable. will ask for pulm opinion on hypoxia prior to dc. VITAL SIGNS/I&O Vital Signs/I&O: Vital Signs Date Time Temp Pulse Resp B/P (MAP) Pulse Ox O2 Delivery O2 Flow Rate FiO2 01/05/19 11:22 97.6 84 22 130/56 (80) 86 Venturi Mask 5.0 97.6 I & O 01/04/19 01/04/19 01/05/19 15:00 23:00 07:00 Intake Total 240 ml 400 ml Balance 240 ml 400 ml ALLERGIES Allergies: Allergies Coded Allergies Type Severity Reaction Last Updated Verified No Known Drug Allergies 04/17/14 No LAB Lab: Laboratory Tests Test 01/05/19 04:45 White Blood Count 9.7 x10^3/uL (4.0-11.0) Red Blood Count 5.40 x10^6/uL (4.30-5.70) Hemoglobin 14.2 g/dL (13.0-17.5) Hematocrit 43.3 % (39.0-53.0) Mean Corpuscular Volume 80 fL (79-100) Mean Corpuscular Hemoglobin 26 pg (25-35) Mean Corpuscular Hemoglobin Concent 33 g/dL (31-37) Red Cell Distribution Width 17.6 % (11.5-14.5) H Platelet Count 249 x10^3/uL (140-400) Laboratory Tests 01/05/19 04:45 MARGE COLMENARES MD Jan 05, 2019 11:54
[2019-01-05 15:00] VITALS: BP 120/69
--- NOTE | 2019-01-05 15:13 | CONS ---
DATE OF CONSULTATION: PULMONARY CONSULTATION HISTORY OF PRESENT ILLNESS: The patient is a 58-year-old male that I am asked to see because of hypoxemia. The patient has had a prior CVA. He has aphasia and very poor memory. He therefore unfortunately is unable to provide much history. Some information is taken from the chart. The patient was admitted to [facility] with a non-ST elevated myocardial infarction. He underwent cardiac catheterization that confirmed a 3-vessel coronary artery disease. That is being treated medically. He has an extensive history of vascular disease including his prior CVA and peripheral vascular disease. The patient was a longtime smoker. He quit smoking approximately one year ago. The age of onset and the amount of cigarettes per day is unknown. I would note that the patient had a prior chest imaging that I reviewed at [facility]. He had a chest x-ray that was done in 2010 that the interpretation was unremarkable. However, I do believe that it possibly had an early interstitial lung disease. He had a CT exam that was done in 2018. It revealed extensive bilateral interstitial lung disease with honeycombing as well as more typical COPD, type emphysema. His chest x-ray done at that time approximately one year ago is similar to his chest x-rays on this admission showing his bilateral interstitial lung disease and fibrosis. The patient does not know if he has followed with a pulmonary physician in the past. He does not know if there has been any evaluation of this, although his prior CT exams would suggest that has been addressed. The patient does note that he has oxygen at home, which he uses 24 hours a day. PAST MEDICAL HISTORY: Primarily significant for the vascular disease noted above. MEDICATIONS: Aspirin, simvastatin and lisinopril. SOCIAL HISTORY: As noted above. He is a former smoker. More details are unknown. 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 FAMILY HISTORY: Unknown for lung disease. REVIEW OF SYSTEMS: Unobtainable. PHYSICAL EXAMINATION: GENERAL: Reveals a male in no acute distress. He is on 5 liters of oxygen with an 86% oxygen saturation. VITAL SIGNS: He is afebrile. His heart rate is 84 per minute and regular. His respiratory rate is 22 per minute and nonlabored. His blood pressure is 130/56. HEENT: Unremarkable. NECK: There is no JVD or lymphadenopathy. CHEST: He has equal, diminished breath sounds with diffuse rales. CARDIOVASCULAR: He has distant heart sounds with a regular rate and rhythm. ABDOMEN: Soft, without masses or organomegaly. EXTREMITIES: He does have clubbing. He does not have any edema.He does not have any joint deformities or hot/swollen joints. SKIN; He has multiple fleshy tumors NEUROLOGIC: As noted, he has aphasia and poor recall. He does have right hemiplegia. LABORATORY DATA: Please see the description of his x-rays and prior CT exams discussed in the HPI above. ASSESSMENT: 1. Chronic hypoxic respiratory failure. 2. Interstitial lung disease and fibrosis. 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 If these are not neurofibromatoses and the lung disease is not related, the lung disease is likely idiopathic. 3. Chronic obstructive pulmonary disease. 4. Coronary artery disease. 5. Peripheral vascular disease. PLAN: The above respiratory problems are chronic. I also am uncertain as to the progression of his interstitial lung disease and fibrosis. His chest x-rays would suggest that radiographically that has not been rapidly progressive, although that is only a rough estimation. I would discharge the patient on oxygen and appropriate chronic bronchodilators such as Advair 100/50 or Trilogy. Without knowing his prior evaluation, I would not suggest instituting an evaluation or therapy for his interstitial lung disease and fibrosis as an inpatient. If this is neurofibromatoses, there is no effective therapy. If it is idiopathic, the therapy for that is unfortunately limited in efficacy and with significant side effects. Again, that is a discussion more for chronic care purposes and need not be part of this hospitalization. It should start with a review of prior evaluation and therapy. Certainly, I am happy to see the patient in followup after discharge, hopefully with more complete records of his past pulmonary evaluation. Thank you for referring this gentleman. If you have questions, please do not hesitate to contact me. HECTOR MORRIS MD DR: SACHA/maurizio JOB#: [id number] / [id number] KELLEN
[2019-01-05 19:00] VITALS: BP 110/56
[2019-01-05] MEDS: ATORVASTATIN CALCIUM 40 MG TABLET. PO SCH (21:20)
[2019-01-05 23:00] VITALS: BP 130/72
[2019-01-06 03:00] VITALS: BP 118/65
[2019-01-06 07:00] VITALS: BP 115/92
[2019-01-06] MEDS: ASPIRIN ENTERIC COATED 81 MG TABLET.DR. PO SCH (08:24)
[2019-01-06] MEDS: LISINOPRIL 10 MG TABLET PO SCH (08:24)
[2019-01-06] MEDS: METOPROLOL TART IMMED RELEASE 25 MG TABLET. PO SCH (08:24)
[2019-01-06] MEDS: CLOPIDOGREL BISULFATE 75 MG TABLET PO SCH (08:24)
--- NOTE | 2019-01-06 08:39 | PDOC ---
PULMONARY PROGRESS NOTES Vitals Vital Signs Date Time Temp Pulse Resp B/P (MAP) Pulse Ox O2 Delivery O2 Flow Rate FiO2 01/06/19 08:24 78 115/92 01/06/19 07:32 Nasal Cannula 5.0 01/06/19 07:00 97.2 18 91 97.2 General: Alert HEENT: Other Lungs: Crackles Cardiovascular: S1, S2 Abdomen: Soft, Non-tender Extremities: Other Labs Laboratory Tests Test 01/05/19 04:45 White Blood Count 9.7 x10^3/uL (4.0-11.0) Red Blood Count 5.40 x10^6/uL (4.30-5.70) Hemoglobin 14.2 g/dL (13.0-17.5) Hematocrit 43.3 % (39.0-53.0) Mean Corpuscular Volume 80 fL (79-100) Mean Corpuscular Hemoglobin 26 pg (25-35) Mean Corpuscular Hemoglobin Concent 33 g/dL (31-37) Red Cell Distribution Width 17.6 % (11.5-14.5) Platelet Count 249 x10^3/uL (140-400) Medications Active Scripts Medications Dose Route/Sig Max Daily Dose Days Date Category Lisinopril 40 Mg Tablet 1 Tab PO DAILY 01/02/19 Reported Famotidine 20 Mg Tablet 20 Mg PO BID 01/02/19 Reported Furosemide 20 Mg Tablet 1 Tab PO DAILY 01/02/19 Reported Montelukast Sodium Tablet (Montelukast Sodium) 10 Mg Tablet 10 Mg PO DAILY 01/02/19 Reported Simvastatin 40 Mg Tablet 1 Tab PO QHS 04/17/14 Reported Aspir 81 (Aspirin) 81 Mg Tablet. 1 Tab PO DAILY 04/17/14 Reported EARNEST MORGAN MD Jan 06, 2019 08:39
--- NOTE | 2019-01-06 09:04 | PDOC ---
Provider Note Provider Note [id number] SIS TRUONG MD Jan 06, 2019 09:04
[2019-01-06] MEDS ORDERED: CLOP75TA PO (09:13)
[2019-01-06] MEDS ORDERED: METO25TA4 PO (09:14)
[2019-01-06] MEDS ORDERED: LISI10TA2 PO (09:15)
[2019-01-06 11:00] VITALS: BP 128/61
--- NOTE | 2019-01-06 12:24 | DS ---
DATE OF DISCHARGE: 01/06/2019 HOSPITAL SUMMARY: A 58-year-old white male with severe COPD, on oxygen, who has had a stroke and he has aphasia and right-sided hemiparesis. He had persistent chest pain with elevations of troponin greater than 2.5 and rest of the chemistry profile was normal. Cholesterol was 162, LDL 117, HDL was 26. Chest x-ray was felt to be clear with COPD changes and reticular opacities throughout the lungs from chronic pulmonary fibrosis. He was taken to the cath lab technologist and found to have diffuse coronary artery disease and severe peripheral arterial disease with bilateral aortoiliac occlusions. He was felt to be a poor surgical candidate and medical therapy was recommended. Ejection fraction was 45% on angiography. He was treated with metoprolol, lisinopril, and switching from simvastatin to atorvastatin and is doing well. Plavix was added as well and he will be discharged later today if comfortable with the vessel engineer. FINAL DIAGNOSES: 1. Non-ST elevated myocardial infarction. 2. Diffuse coronary artery disease. 3. Severe bilateral peripheral arterial disease. 4. Hyperlipidemia. 5. Chronic obstructive pulmonary disease, oxygen dependent. OPERATIONS AND PROCEDURES: Cardiac catheterization. COMPLICATIONS: None. CONSULTATIONS: Dr. Romero and Dr. Osman's group. DISPOSITION: We will add lisinopril 10 mg, metoprolol 12.5 twice a day and Plavix 75 mg daily to the aspirin he is already taking. He was switched to atorvastatin per Cardiology with a target LDL around 70, likely high dose. Diet is low cholesterol. Complete tobacco avoidance as he is already doing and office follow up with them in 1-2 weeks and myself as needed. Prognosis is relatively poor given the severity of his coronary artery disease and his underlying lung disease as well. SIS TRUONG MD DR: SHERI/maurizio JOB#: [id number] / [id number]
--- NOTE | 2019-01-06 14:36 | NUR ---
Discharge Note: LUCINDA AMANDA Discharge instructions and discharge home medications reviewed with Monkey Trainer and a copy given. All questions have been answered and understanding verbalized. The following instructions and handouts were given: clopidogrel, lisinopril, metoprolol Patient discharged to home or self care with family member via wheelchair
== END 2019-01-06 14:30 | disposition home or self-care (01) | DRG 280 ==
LOC: ER 02:16 → 2 SOUTH 04:00
PROVIDERS: ADMIT Family Medicine; ATTEND Family Medicine
PROC: 4A023N7 Measurement of Cardiac Sampling and Pressure, Left Heart, Percutaneous Approach (ICD-10-PCS; principal; 2019-01-02)
PROC: B211YZZ Fluoroscopy of Multiple Coronary Arteries using Other Contrast (ICD-10-PCS; 2019-01-02)
PROC: B41GYZZ Fluoroscopy of Left Lower Extremity Arteries using Other Contrast (ICD-10-PCS; 2019-01-02)
PROC: B41FYZZ Fluoroscopy of Right Lower Extremity Arteries using Other Contrast (ICD-10-PCS; 2019-01-02)
DX: I21.4 Non-ST elevation (NSTEMI) myocardial infarction (principal); N17.0 Acute kidney failure with tubular necrosis; I69.351 Hemiplegia and hemiparesis following cerebral infarction affecting right dominant side; J96.11 Chronic respiratory failure with hypoxia; I42.9 Cardiomyopathy, unspecified; I69.320 Aphasia following cerebral infarction; I73.9 Peripheral vascular disease, unspecified; I10 Essential (primary) hypertension; E78.5 Hyperlipidemia, unspecified; M19.90 Unspecified osteoarthritis, unspecified site; N40.0 Benign prostatic hyperplasia without lower urinary tract symptoms; Z60.2 Problems related to living alone; J43.9 Emphysema, unspecified; I25.10 Atherosclerotic heart disease of native coronary artery without angina pectoris; E86.0 Dehydration; Z87.891 Personal history of nicotine dependence; Z99.81 Dependence on supplemental oxygen
CPT/HCPCS: 36415; 71045; 76937; 80048; 80053; 80061; 83690; 83880; 84484; 85025; 85027; 85520; 85610; 93005; 93306; 93458; 96365; 99152; 99153; C1769; C1892; C1894; J1644; J2250; J3010; J3490; J7030; Q9967; 97530; 99285-25; G0378